=== PATIENT | female | born 1945 | race Caucasian/White ===

== ENCOUNTER 2017-01-16 22:12 | Emergency (ER) | payer MEDICARE, BC ==
[~2017-01-16] VITALS: Ht 167.6 cm; Wt 104.8 kg
[2017-01-16 22:24] VITALS: BP 172/89; PULSE 85; RESP 16; TEMP 97.4; O2SAT 99
[2017-01-16] MEDS ORDERED: ULOR80TA2 PO (23:06)
[2017-01-16] MEDS ORDERED: NIFEDICAL XL PO (23:06)
[2017-01-16] MEDS ORDERED: ZOCO10TA PO (23:06)
[2017-01-16] MEDS ORDERED: ACET-898 PO (23:06)
[2017-01-16] MEDS ORDERED: LEVO.125 PO (23:06)
[2017-01-16] MEDS ORDERED: LOSA100T PO (23:06)
[2017-01-16] MEDS ORDERED: FAMO40TA PO (23:06)
[2017-01-16] MEDS ORDERED: VITA200013 PO (23:06)
[2017-01-16] MEDS ORDERED: CORTISPORIN OTIC EACH EAR (23:11)
[2017-01-16] MEDS ORDERED: ROBA750T PO (23:11)
--- NOTE | 2017-01-16 23:16 | PD ---
HPI Chief Complaint: Oral / Dental Pain or Problem Time Seen by Provider: 22:34 Travel History International Travel<30 days: No Contact w/Intl Traveler<30days: No Traveled to known affect area: No History of Present Illness HPI 71-year-old female complains left-sided jaw pain and neck pain this evening. Patient states the pain aching pain localized left-sided jaw and left-sided neck area. Patient denies any pain radiation. Patient states that she has history of arthritis. Patient denies any chest pain or shortness of breath. Patient denies any headache. Patient denies any visual change. Patient denies any earache or sore throat. Patient denies any coughing congestion. Patient denies any fever chills. Patient denies any focal weakness or numbness of the extremity. 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 SKIN: Focused skin assessment warm/dry. HEAD: Normocephalic. EYES: No scleral icterus. No injection or drainage. Both ear canals impacted with cerumen. Cerumen was removed with ear irrigation. Left ear canal is inflamed. Right Canal normal. TM are clear. Throat: Nonerythematous. No tenderness on palpation of the left upper, lower gum area. NECK: Supple, trachea midline. No JVD or lymphadenopathy. No meningismus. Mild tenderness on palpation left-sided neck area left angle of the mandible area. No soft tissue swelling noted. CARDIOVASCULAR: Regular rate and rhythm without murmurs, gallops, or rubs. RESPIRATORY: Breath sounds equal bilaterally. No accessory muscle use. GASTROINTESTINAL: Abdomen soft, non-tender, nondistended. MUSCULOSKELETAL: No cyanosis, or edema. BACK: Nontender without obvious deformity. No CVA tenderness. Data Data Last Documented VS Vital Signs Date Time Temp Pulse Resp B/P Pulse Ox O2 Delivery O2 Flow Rate FiO2 01/16/17 22:24 97.4 85 16 172/89 99 Orders Electrocardiogram (01/16/17 ) MDM Medical Decision Making Medical Screen Exam Complete: Yes Emergency Medical Condition: Yes Interpretation(s) 11:16 PM. EKG shows sinus rhythm nonspecific ST-T wave change. Differential Diagnosis Differential diagnosis including dental pain, otitis externa, otitis media, lymphadenitis, cervical radiculopathy, musculoskeletal. Narrative Course 71-year-old female with left-sided jaw pain and left-sided neck pain. Procedures Procedure Narrative Bilateral ear irrigation with warm water. A large amount of cerumen was removed from both ear canals. Diagnosis Primary Impression: Muscular pain Additional Impression: Impacted cerumen Qualified Code: H61.23 - Bilateral impacted cerumen Patient Instructions: General Instructions Additional Instructions: Use eardrops in the left ear is directed. Take medications as needed for pain. Follow-up with personal physician. Return if persistent problem or worse. Med/Other Pt SpecificInfo: Prescription(s) given Scripts Methocarbamol (Robaxin)750 Mg Mpb195 Mg PO QID #40 TAB Ref 0 Prov:Preston Dewitt MD 01/16/17 [Cortisporin Otic ] No Conflict Check6 Drop EACH EAR TID #1 Prov:Preston Dewitt MD 01/16/17 Disposition: 01 DISCHARGE HOME Condition: Stable Preston Dewitt MD January 16, 2017 23:16
--- NOTE | 2017-01-18 15:29 | EKG ---
Date Performed: 01/16/2017 Time Performed: 23:04:04 PTAGE: 71 years EKG: Sinus rhythm . Left axis deviation Low QRS voltages in precordial leads Borderline ECG NO PREVIOUS TRACING DOCTOR: Jacob Shore Interpretating Date/Time 01/18/2017 15:27:26
== END 2017-01-16 23:28 | disposition home or self-care (01) ==
LOC: PHEFT 22:12
DX: H61.23 Impacted cerumen, bilateral (principal); R68.84 Jaw pain; M54.2 Cervicalgia; E78.00 Pure hypercholesterolemia, unspecified; K21.9 Gastro-esophageal reflux disease without esophagitis; M10.9 Gout, unspecified; I10 Essential (primary) hypertension
CPT/HCPCS: 69210; 93005